=== PATIENT | male | born 1965 | race Caucasian/White ===

== ENCOUNTER 2020-12-31 05:49 | Observation (INO) | payer OTHER ==
[2020-12-31] MEDS ORDERED: Thrombin 5000 UNITS/5 ML VIAL ONE (06:22)
[2020-12-31] MEDS ORDERED: Midazolam HCl 2 mg/2 ml Vial ONE (06:26)
[2020-12-31] MEDS ORDERED: Fentanyl 100 MCG/2 ML VIAL ONE ×3 (06:26→08:54)
[2020-12-31] MEDS ORDERED: HYDROmorphone 2 MG/ML VIAL ONE ×2 (06:26→09:04)
[2020-12-31] MEDS ORDERED: Clindamycin/D5W 900 mg/50 ml Premix Bag ONE (06:52)
[2020-12-31] MEDS ORDERED: Levofloxacin 500 mg/D5W 100 ml Premix Bag ONE (06:52)
[2020-12-31 06:54] LABS: Hemoglobin 14.5 g/dL (14.0-18.0); Mean Corpuscular HGB CONC 32.6 g/dL (32.0-36.0); Mean Platelet Volume 7.7 fL (7.4-10.4); Platelet Count 248 thou/uL (130-400); RBC Distribution Width 16.4 % (11.5-14.5); Red Blood Cell (RBC) Count 4.41 mill/uL (4.70-6.10); White Blood Cell (WBC) Count 9.3 thou/uL (4.8-10.8)
[2020-12-31 07:08] LABS: Anion Gap 13 mmol/L (10-20); BUN (Urea Nitrogen) 18 mg/dL (8.4-25.7); Calc. Creatinine Clearance 55 mL/min (70-130); Carbon Dioxide 28 mmol/L (22-29); Chloride 102 mmol/L (98-107); Potassium 3.8 mmol/L (3.5-5.1); Sodium 139 mmol/L (136-145)
[2020-12-31 07:09] LABS: Calcium 9.3 mg/dL (7.8-10.44); Glucose 111 mg/dL (70-105)
[2020-12-31] MEDS ORDERED: PROPOFOL 200 MG/20 ML VIAL ONE (07:20)
[2020-12-31] MEDS ORDERED: ePHEDrine 50 MG/ML VIAL ONE (07:20)
[2020-12-31] MEDS ORDERED: PHENYLEPHRINE-NS 100 MCG/ML 10 ML SYRINGE ONE (07:20)
[2020-12-31] MEDS ORDERED: Glycopyrrolate 0.2 MG/ML 5 ML SYRINGE ONE (07:20)
[2020-12-31] MEDS ORDERED: Rocuronium Bromide 10 MG/ML (10ML VIAL) ONE (07:20)
[2020-12-31] MEDS ORDERED: Lidocaine 1% PF 5 ML VIAL ONE (07:20)
[2020-12-31] MEDS ORDERED: Ondansetron PF 4 MG/2 ML Vial ONE (07:20)
[2020-12-31] MEDS ORDERED: Dexamethasone 20 MG/5 ML VIAL ONE (07:20)
[2020-12-31 07:30] LABS: #Eosinphils 0.8 thou/uL (0.0-0.7); #Lymphocytes 2.5 thou/uL (1.20-3.40); #Monocytes 1.4 thou/uL (0.11-0.59); #Neutrophils 4.6 thou/uL (1.40-6.50); %Basophils 0.4 % (0.0-1.0); %Eosinophils 8.5 % (0.0-10.0); %Lymphocytes 26.8 % (21.0-51.0); %Monocytes 14.9 % (0.0-10.0); %Neutrophils 49.4 % (42.0-75.0); Band 1 % (5-11); Eosinophils 7 % (0-10); Lymphocytes 28 % (21-51); MDiff Complete? YES; Monocytes 9 % (0-10); Neutrophil 53 % (42-75); RBC Morphology Normal; Reactive Lymphocytes 2 % (0-10)
[2020-12-31] MEDS ORDERED: SUGAMMADEX SODIUM 200 MG/2 ML VIAL ONE (08:01)
[2020-12-31] MEDS ORDERED: Tamsulosin HCl 0.4 MG CAP ONE (08:54)
[2020-12-31] MEDS ORDERED: HYDROcodone/Acetaminophen 5/325 mg Tablet ONE (11:03)
[2020-12-31] MEDS ORDERED: Ketorolac Tromethamine 30 MG/ML VIAL ONE (11:04)
[2020-12-31] MEDS ORDERED: tiZANidine HCl 4 MG TAB ONE (13:01)
[2020-12-31] MEDS ORDERED: HYDROcodone/Acetaminophen 10/325 mg Tablet PO PRN (20:45)
[2020-12-31] MEDS ORDERED: Acetaminophen 325 MG TAB PO PRN (20:45)
[2020-12-31] MEDS ORDERED: Sodium Chloride 0.9% 1,000 ML IV SCH (20:45)
[2020-12-31] MEDS ORDERED: diphenhydrAMINE 25 MG CAP PO PRN (20:45)
[2020-12-31] MEDS ORDERED: Acetaminophen 650 MG Suppository PR PRN (20:45)
[2020-12-31] MEDS ORDERED: tiZANidine HCl 4 MG TAB PO PRN (20:45)
[2020-12-31] MEDS ORDERED: Morphine 2 MG/ML VIAL SLOW IVP PRN (20:45)
[2020-12-31] MEDS ORDERED: Promethazine HCl 25 MG/ML VIAL IM PRN (20:45)
[2020-12-31] MEDS ORDERED: Promethazine HCl 12.5 MG SUPP PR PRN (20:45)
[2020-12-31] MEDS ORDERED: Ondansetron PF 4 MG/2 ML Vial IM PRN (20:45)
[2020-12-31] MEDS ORDERED: Mag-Al 1200 mg/1200 mg/30 ML UDCUP PO PRN (20:45)
[2020-12-31] MEDS ORDERED: diphenhydrAMINE 50 MG/ML VIAL IVP PRN (20:45)
[2020-12-31] MEDS ORDERED: Promethazine 25 MG TAB PO PRN (20:45)
[2020-12-31 22:03] VITALS: BMI 27.3
[2021-01-01] MEDS: Ketorolac Tromethamine 30 MG/ML VIAL IVP SCH ×2 (03:47→05:23)
[2021-01-01] MEDS ORDERED: Tamsulosin HCl 0.4 MG CAP PO SCH (06:00)
[2021-01-01 08:38] VITALS: BP 117/68
[2021-01-01 10:55] VITALS: TEMP 97
== END 2021-01-01 10:59 | disposition home or self-care (01) ==
LOC: SDC 05:49 → SURG B 19:08
PROVIDERS: ADMIT Neurological Surgery; ATTEND Neurological Surgery
PROC: 0SG0071 Fusion of Lumbar Vertebral Joint with Autologous Tissue Substitute, Posterior Approach, Posterior Column, Open Approach (ICD-10-PCS; principal; 2020-12-31)
DX: M48.062 Spinal stenosis, lumbar region with neurogenic claudication (principal); R33.8 Other retention of urine; I10 Essential (primary) hypertension; E78.5 Hyperlipidemia, unspecified; G89.29 Other chronic pain; M54.5 Low back pain; G47.30 Sleep apnea, unspecified; F17.210 Nicotine dependence, cigarettes, uncomplicated; Z79.899 Other long term (current) drug therapy; Z88.0 Allergy status to penicillin; Z88.5 Allergy status to narcotic agent
CPT/HCPCS: 36415; 76000; 80048; 85025; 93005; 93010; 96374; C1713; C1768; G0378; J1100; J1170; J1885; J1956; J2250; J2405; J2704; J3010; J3370; J3490; J7050